=== PATIENT | male | born 1975 | race African-American/Black ===

== ENCOUNTER 2021-02-18 16:32 | Emergency (ER) | payer OTHER ==
[2021-02-18] MEDS ORDERED: Hydrochlorothiazide 25 MG TAB ONE (17:07)
[2021-02-18] MEDS ORDERED: Ibuprofen 800 MG TAB ONE (17:07)
[2021-02-18] MEDS ORDERED: Acetaminophen 500 MG TAB ONE (17:07)
== END 2021-02-18 17:46 | disposition home or self-care (01) ==
LOC: MADERS 16:32
DX: S09.90XA Unspecified injury of head, initial encounter (principal); R07.9 Chest pain, unspecified; M25.552 Pain in left hip; M25.512 Pain in left shoulder; V43.52XA Car driver injured in collision with other type car in traffic accident, initial encounter; I10 Essential (primary) hypertension
CPT/HCPCS: 71046; 93005